=== PATIENT | female | born 1980 | race Asian ===

== ENCOUNTER 2018-11-21 17:32 | Emergency (ER) | payer MEDICAID ==
[~2018-11-21] VITALS: Ht 165.1 cm; Wt 54.4 kg
--- NOTE | 2018-11-21 17:53 | NUR ---
ED Nurse Note: Pt 8 weeks came in from home after finished her course of Cytotec pills at 1300 today. She has been having cramping 10/10 with n/v and heavy bleeding (6 pads per day). AOx4, VSS nusrat. Will cont to monitor.
[2018-11-21 17:57] LABS: APPEARANCE,URINE SLIGHTLY CLOUDY; BILIRUBIN, URINE NEGATIVE (NEGATIVE); GLUCOSE, URINE (UA) NEGATIVE (NEGATIVE); KETONES,URINE 1+ (NEGATIVE); LEUKOCYTE ESTERASE ,URINE 2+ (NEGATIVE); NITRITE,URINE NEGATIVE (NEGATIVE); PH,URINE 5 (4.5-8.0); PROTEIN,URINE 3+ (NEGATIVE); UROBILINOGEN,URINE NORMAL MG/DL (0.0-1.0)
[2018-11-21] MEDS ORDERED: Metoclopramide 10mg/2ml Inj IVP ONE (18:00)
[2018-11-21] MEDS ORDERED: Ketorolac 60mg Inj IM ONE (18:00)
--- NOTE | 2018-11-21 18:00 | NUR ---
ED Nurse Note: Pt ambulated to the restroom with steady gait.
[2018-11-21 18:04] LABS: COLOR,URINE RED
--- NOTE | 2018-11-21 18:04 | Emergency Room Report ---
History of Present Illness General Chief Complaint: Complications Source: Patient Present Illness HPI 38-year-old female with no significant past medical history and history of 3 selective abortions with the latest being 1-1/2-year ago here complaining of 10 out of 10 abdominal pain and cramping after taking a second dose of Cytotec for 5 hours prior to arrival to the ED. Patient reports that she took the first dose yesterday and had a lot of clotting and still has cramping and bleeding. She is rating her pain 10 out of 10 without radiation, complaining of nausea and vomiting. Denies syncope, shortness of breath, palpitation, dizziness. Has been and reports that she has taken the same medication before for . She last saw her WE[facility] INSPECTOR a day ago and had ultrasound performed. This coming Friday. She keeps asking for pain medication even after 60 mg of IM Toradol was injected. Patient appears stable, in mild distress due to pain, able to ambulate. Denies fever and chills. Allergies: Coded Allergies: No Known Allergies (Unverified , 11/21/18) Patient History Past Medical History: see triage record Past Surgical History: unable to obtain Pertinent Family History: none Now: No Immunizations: UTD Reviewed Nursing Documentation: PMH: Agreed; PSxH: Agreed Nursing Documentation-PMH Past Medical History: No History, Except For Review of Systems All Other Systems: negative except mentioned in HPI Physical Exam Vital Signs Date Time Temp Pulse Resp B/P (MAP) Pulse Ox O2 Delivery O2 Flow Rate FiO2 11/21/18 17:41 98.6 90 20 98 Room Air Sp02 EP Interpretation: reviewed, normal General Appearance: alert, GCS 15, non-toxic, mild distress Head: normocephalic Eyes: bilateral eye normal inspection, bilateral eye PERRL ENT: normal ENT inspection, hearing grossly normal, normal pharynx, no angioedema Neck: normal inspection, full range of motion, supple Respiratory: normal inspection, lungs clear, normal breath sounds, no rhonchi Cardiovascular #1: normal inspection, regular rate, rhythm, no edema, no murmur Gastrointestinal: no mass, no organomegaly, no peritonitis, no bruit, no pulsatile mass, guarding - bilateral lower lobes, hernia - periumbilical reducable Medical Decision Making PA Attestation All my diagnosis and treatment plans were reviewed ad discussed with my supervising physician Dr. Ward Diagnostic Impression: Primary Impression: Abdominal pain during Additional Impression: in first trimester ER Course 38-year-old female with no significant past medical history and history of 3 selective abortions with the latest being 1-1/2-year ago here complaining of 10 out of 10 abdominal pain and cramping after taking a second dose of Cytotec for 5 hours prior to arrival to the ED. Patient reports that she took the first dose yesterday and had a lot of clotting and still has cramping and bleeding. She is rating her pain 10 out of 10 without radiation, complaining of nausea and vomiting. Denies syncope, shortness of breath, palpitation, dizziness. Has been and reports that she has taken the same medication before for . She last saw her WE[facility] INSPECTOR a day ago and had ultrasound performed. This coming Friday. She keeps asking for pain medication even after 60 mg of IM Toradol was injected. Patient appears stable, in mild distress due to pain, able to ambulate. Denies fever and chills. Ddx considered but are not limited to: appendicitis, cholycisitis, gastritis, gasthroentritis, UTI, pylonephritis, SBO, diverticulitis, influenza with GI manifestation, [place], complication with , first trimester Vital signs: are WNL, pt. is afebrile H&PE are most consistent with: first trimester, abdominal pain during secondary to medication ORDERS: , abdominal pain set, abdominal US and pelvic US( TVUS) tech was unable to do abd US as pt c/o lots of pain , ibuprofen, zofran ED INTERVENTIONS: toradol, tylenol, ibuprofen DISCHARGE: At this time pt. is stable for d/c to home. Will provide printed patient care instructions, and any necessary prescriptions. Care plan and follow up instructions have been discussed with the patient prior to discharge. Follow-up with [facility] in 24 to 48 hours for repeat beta hCG as well as ultrasound if dizziness, syncope, excessive emesis return to the emergency room. You still have a status and has not completed beta HCG [id number] EKG Diagnostic Results Rate: normal Rhythm: NSR ST Segments: no acute changes CT/MRI/US Diagnostic Results CT/MRI/US Diagnostic Results : Imaging Test Ordered: TVUS/transabdominal Impression FINDINGS: Limitations: Exam limited by patient discomfort, resulting in early termination of the endovaginal examination. Uterus/cervix: The uterus measures 12.6 x 6.4 x 6.5 cm for an estimated volume of 274 mL. No myometrial mass. Right ovary: Right ovary measures 3.0 x 2.8 x 2.4 cm and demonstrates normal flow on color and spectral Doppler imaging. Normal blood flow. Left ovary: Left ovary measures 3.2 x 2.0 x 2.4 cm. Normal flow on color and spectral Doppler imaging. Normal blood flow. Free fluid: The ovaries are normal. A right corpus luteum is noted. No adnexal mass. No pelvic free fluid. Bladder: Unremarkable as visualized. Wall is normal thickness for degree of distention. Other findings: Based on LMP of September 20, 2018, gestational age by dates is 8 weeks and 6 days with an estimated delivery date by dates of June 27, 2019. The endometrial stripe is obscured by an intrauterine gestational sac and cannot be measured. Single live intrauterine gestation with a heart rate of 169 beats per minutes is identified measuring 8 weeks and 2 days by crown-rump length of 1.9 cm. Estimated delivery date by ultrasound is July 01, 2019. Adjacent to the gestational sac is a subchorionic hemorrhage measuring 2.3 x 1.4 cm. There is mild irregularity to the gestational sac contour. IMPRESSION: 1. Single live intrauterine gestation with sonographic gestational age of 8 weeks and 2 days and estimated delivery date of July 01, 2019, correlating with gestational age by dates. 2. A small subchorionic hemorrhage measuring 2.3 cm in diameter is noted. 3. There is some irregularity to the gestational sac contour of uncertain clinical significance. Last Vital Signs Date Time Temp Pulse Resp B/P (MAP) Pulse Ox O2 Delivery O2 Flow Rate FiO2 11/21/18 17:41 98.6 90 20 98 Room Air Disposition: HOME, SELF-CARE Condition: Stable Scripts Ondansetron (Zofran) 4 Mg Tablet 4 MG ORAL Q6H PRN for Nausea & Vomiting, #20 TAB Prov: Rehana Dougherty 11/21/18 Ibuprofen (Ibuprofen) 600 Mg Tablet 600 MG PO TID, #30 TAB Prov: Rehana Dougherty 11/21/18 Referrals: NOT CHOSEN IPA/,REFERRING (PCP) Patient Instructions: Abdominal Pain During , [id number], Prostaglandin-Induced , Care After Additional Instructions: Follow-up with your WE[facility]ING INSPECTOR in 24 to 48 hours for repeat ultrasound as well as beta hCG. is not completed at this point. Take medication as directed , avoid strenuous physical activity, if fever, chills, dizziness return to the emergency room. No complications noted on her ultrasound at this point. Rehana Dougherty November 21, 2018 18:04
[2018-11-21 18:24] LABS: BASOPHILS % (AUTO) 0.8 % (0.0-2.0); EOSINOPHILS % (AUTO) 2.2 % (0.0-3.0); HEMATOCRIT 38.3 % (37.0-47.0); HEMOGLOBIN 13.3 G/DL (12.0-16.0); LYMPHOCYTES % (AUTO) 20.6 % (20.0-45.0); MEAN CORPUSCULAR VOLUME 88 FL (80-99); MONOCYTES % (AUTO) 7.5 % (1.0-10.0); NEUTROPHILS % (AUTO) 68.9 % (45.0-75.0); PLATELET COUNT 414 K/UL (150-450); RED BLOOD COUNT 4.34 M/UL (4.20-5.40); RED CELL DISTRIBUTION WIDTH 10.9 % (11.6-14.8)
[2018-11-21] MEDS ORDERED: Acetaminophen 500mg (ES) tab ORAL ONE (18:30)
[2018-11-21 18:41] LABS: ANION GAP 10 mmol/L (5-15); BLOOD UREA NITROGEN 8 mg/dL (7-18); CARBON DIOXIDE 22 MMOL/L (21-32); CHLORIDE 102 MMOL/L (98-107); CREATININE 0.8 MG/DL (0.55-1.30); POTASSIUM 4.3 MMOL/L (3.5-5.1); SODIUM 134 MMOL/L (136-145)
--- NOTE | 2018-11-21 18:45 | NUR ---
ED Nurse Note: US tech at bedside for imaging.
[2018-11-21 18:47] LABS: ALANINE AMINOTRANSFERASE 25 U/L (12-78); ALBUMIN 3.5 G/DL (3.4-5.0); ALBUMIN/GLOBULIN RATIO 0.9 (1.0-2.7); ALKALINE PHOSPHATASE 60 U/L (46-116); ASPARTATE AMINO TRANSFERASE 15 U/L (15-37); BILIRUBIN,TOTAL 0.4 MG/DL (0.2-1.0)
--- NOTE | 2018-11-21 19:31 | NUR ---
ED Nurse Note: pt refused US ABS, ERMD aware. awaiting futher orders
--- NOTE | 2018-11-21 20:06 | Diagnostic Imaging Report ---
EXAM: US Pelvis Complete, Transabdominal CLINICAL HISTORY: ABD PAIN TECHNIQUE: Real-time transabdominal pelvic ultrasound (complete) with image documentation. COMPARISON: none FINDINGS: Limitations: Exam limited by patient discomfort, resulting in early termination of the endovaginal examination. Uterus/cervix: The uterus measures 12.6 x 6.4 x 6.5 cm for an estimated volume of 274 mL. No myometrial mass. Right ovary: Right ovary measures 3.0 x 2.8 x 2.4 cm and demonstrates normal flow on color and spectral Doppler imaging. Normal blood flow. Left ovary: Left ovary measures 3.2 x 2.0 x 2.4 cm. Normal flow on color and spectral Doppler imaging. Normal blood flow. Free fluid: The ovaries are normal. A right corpus luteum is noted. No adnexal mass. No pelvic free fluid. Bladder: Unremarkable as visualized. Wall is normal thickness for degree of distention. Other findings: Based on LMP of September 20, 2018, gestational age by dates is 8 weeks and 6 days with an estimated delivery date by dates of June 27, 2019. The endometrial stripe is obscured by an intrauterine gestational sac and cannot be measured. Single live intrauterine gestation with a heart rate of 169 beats per minutes is identified measuring 8 weeks and 2 days by crown-rump length of 1.9 cm. Estimated delivery date by ultrasound is July 01, 2019. Adjacent to the gestational sac is a subchorionic hemorrhage measuring 2.3 x 1.4 cm. There is mild irregularity to the gestational sac contour. IMPRESSION: 1. Single live intrauterine gestation with sonographic gestational age of 8 weeks and 2 days and estimated delivery date of July 01, 2019, correlating with gestational age by dates. 2. A small subchorionic hemorrhage measuring 2.3 cm in diameter is noted. 3. There is some irregularity to the gestational sac contour of uncertain clinical significance.
[2018-11-21] MEDS ORDERED: IBUPROFEN600 M1 PO (20:16)
[2018-11-21] MEDS ORDERED: ZOFRAN4 M1 ORAL (20:16)
[2018-11-21 20:23] VITALS: BP 124/73
--- NOTE | 2018-11-21 20:23 | NUR ---
ER DISCHARGE NOTE: Patient is cleared to be discharged per ERMD, pt is aox4, on room air, with stable vital signs. pt was given dc and prescription instructions, pt was able to verbalize understanding, pt id band and iv site removed without complications. pt is able to ambulate with steady gait. pt took all belongings.
== END 2018-11-21 20:22 | disposition home or self-care (01) ==
LOC: EMR 17:48
DX: O03.9 Complete or unspecified spontaneous abortion without complication (principal); R10.9 Unspecified abdominal pain
CPT/HCPCS: 36415; 76817; 80053; 80307; 81003; 81025; 84702; 85025; 93005; 96372; 96374; 99284; J2405; J2765

== ENCOUNTER → 2020-08-08 | Outpatient (CLI) | payer OTHER ==
[~2020-08-08] MED LIST: IBUPROFEN600 M1 PO; ZOFRAN4 M1 ORAL
--- NOTE | 2020-08-08 14:25 | Diagnostic Imaging Report ---
Procedure: XRAY Chest 2v Reason for study: Asthma. Shortness of breath. Comparison films: None. FINDINGS: Frontal and lateral views of the chest are obtained. Vascularity is normal. The lung drake are clear bilaterally. Cardiac and mediastinal silhouette are within normal limits. CP angles are sharp. The bony thorax appear unremarkable. IMPRESSION: NO ACUTE CARDIOPULMONARY DISEASE.
== END | disposition home or self-care (01) ==
LOC: RAD 13:10
DX: R06.02 Shortness of breath (principal); J45.909 Unspecified asthma, uncomplicated
CPT/HCPCS: 71046